=== PATIENT | male | born 1970 | race Caucasian/White ===

== ENCOUNTER 2016-12-21 15:26 | Observation (INO) | payer MEDICAID ==
[2016-12-21] MEDS ORDERED: Sodium Chloride 0.9% 1,000 ML IV ONE (15:49)
--- NOTE | 2016-12-21 15:49 | EDM.PDOC ---
ED HPI GENERAL MEDICAL PROBLEM - General Chief Complaint: Respiratory Problem Stated Complaint: SHORTNESS OF BREATH Time Seen by Provider: 12/21/16 15:46 Source of Information: Reports: Patient, Family - History of Present Illness INITIAL COMMENTS - FREE TEXT/NARRATIVE: HISTORY AND PHYSICAL: History of present illness: [] Patient presents by private vehicle Patient has a history pulmonary embolism subsequently receiving TPA leading to history of CVA earlier this year back in April, he was admitted for rehabilitation at [place] [facility] [place], he was released in July, he returned home. he generally walks 200 yards per day going down his driveway and back, today he was tired generally weak and was unable to walk the 200 yards, his is quite worried about this and is brought him in On December 11 he had some replacement hardware placed in his head, he also has a ventricular shunt. This was on December 11, since he has been released is followed by neurology [place] he has surgical scars on his head sutures are in place there clean dry intact. there are also [address] AURELIO drain had been this is been removed. this wound is also clean dry and intact. His neurologist is cleared him to start L Aquinas and is currently taking this as directed No fever nausea vomiting chills sweats no chest pain shortness of breath headache dizziness or palpitation no bowel or urine symptoms, his states he is short of breath patient denies this is breathing is nonlabored and he speaks without difficulty is in no distress whatsoever He did ambulate into the emergency room on his own Review of systems: As per history of present illness and below otherwise all systems reviewed and negative. Past medical history: As per history of present illness and as reviewed below otherwise noncontributory. Surgical history: As per history of present illness and as reviewed below otherwise noncontributory. Social history: No reported history of drug or alcohol abuse. Family history: As per history of present illness and as reviewed below otherwise noncontributory. Physical exam: HEENT: Atraumatic, normocephalic, pupils reactive, negative for conjunctival pallor or scleral icterus, mucous membranes moist, throat clear, neck supple, nontender, trachea midline. Lungs: Clear to auscultation, breath sounds equal bilaterally, chest nontender. Heart: S1S2, regular, negative for clicks, rubs, or JVD. Abdomen: Soft, nondistended, nontender. Negative for masses or hepatosplenomegaly. Negative for costovertebral tenderness. Pelvis: Stable nontender. Genitourinary: Deferred. Rectal: Deferred. Extremities: Atraumatic, negative for cords or calf pain. Neurovascular unremarkable. Neuro: Awake, alert, oriented. Cranial nerves II through XII unremarkable. Cerebellum unremarkable. Motor and sensory unremarkable throughout. Exam nonfocal. Diagnostics: []Lab as below EKG Chest 1 view Therapeutics: []Normal saline bolus DuoNeb Solu-Medrol Impression: Hypoxia 86 % RA []Generalized weakness Chronic history of baseline Definitive disposition and diagnosis as appropriate pending reevaluation and review of above. - Related Data Allergies Allergy/AdvReac Type Severity Reaction Status Date / Time No Known Allergies Allergy Verified 04/26/16 20:38 Home Meds: Home Meds Apixaban [Eliquis] 2.5 mg PO BID 12/21/16 [History] Baclofen 10 mg PO QID 12/21/16 [History] Escitalopram Oxalate 20 mg PO DAILY 12/21/16 [History] amLODIPine [Norvasc] 5 mg PO DAILY 12/21/16 [History] oxyCODONE 5 mg PO Q6HR PRN 12/21/16 [History] Past Medical History HEENT History: Reports: None Cardiovascular History: Reports: None Respiratory History: Reports: None Gastrointestinal History: Reports: None Neurological History: Reports: Other (See Below) Other Neuro History: brain bleed - Infectious Disease History Infectious Disease History: Reports: Chicken Pox - Past Surgical History HEENT Surgical History: Reports: None Cardiovascular Surgical History: Reports: None Respiratory Surgical History: Reports: None GI Surgical History: Reports: Hernia, Abdominal Social & Family History - Tobacco Use Smoking Status *Q: Never Smoker Years of Tobacco use: 10 Packs/Tins Daily: 0.2 Second Hand Smoke Exposure: No - Caffeine Use Caffeine Use: Reports: Coffee, Soda - Recreational Drug Use Recreational Drug Use: No - Living Situation & Occupation Living situation: Reports: with Significant Other Occupation: Employed ED ROS GENERAL - Review of Systems Review Of Systems: See Below ED EXAM, GENERAL - Physical Exam Exam: See Below Course - Vital Signs Last Recorded V/S: Last Vital Signs Temp 36.7 C 12/21/16 15:38 Pulse 70 12/21/16 15:38 Resp 18 12/21/16 15:38 BP 117/79 12/21/16 15:38 Pulse Ox 96 12/21/16 16:10 - Orders/Labs/Meds Orders: Active Orders 24 hr Category Date Time Status EKG Documentation Completion [RC] STAT Care 12/21/16 15:45 Active RT Aerosol Therapy [RC] ASDIRECTED Care 12/21/16 16:24 Active RT Aerosol Therapy [RC] ASDIRECTED Care 12/21/16 16:25 Inactive Chest 1V Frontal [CR] Stat Exams 12/21/16 15:45 Taken B-TYPE NATRIURETIC PEPTIDE,BNP [CHEM] Stat Lab 12/21/16 15:40 Received Labs: Laboratory Tests 12/21/16 12/21/16 12/21/16 Range/Units 15:40 15:40 15:40 WBC 6.23 (4.0-11.0) K/uL RBC 4.35 L (4.50-5.90) M/uL Hgb 13.9 (13.0-17.0) g/dL Hct 41.5 (38.0-50.0) % MCV 95.4 (80.0-98.0) fL MCH 32.0 (27.0-32.0) pg MCHC 33.5 (31.0-37.0) g/dL RDW Std Deviation 45.8 (28.0-62.0) fl RDW Coeff of El 13 (11.0-15.0) % Plt Count 203 (150-400) K/uL MPV 9.90 (7.40-12.00) fL Neut % (Auto) 62.7 (48.0-80.0) % Lymph % (Auto) 25.7 (16.0-40.0) % [place] % (Auto) 8.8 (0.0-15.0) % Eos % (Auto) 2.6 (0.0-7.0) % Baso % (Auto) 0.2 (0.0-1.5) % Neut # (Auto) 3.9 (1.4-5.7) K/uL Lymph # (Auto) 1.6 (0.6-2.4) K/uL [place] # (Auto) 0.6 (0.0-0.8) K/uL Eos # (Auto) 0.2 (0.0-0.7) K/uL Baso # (Auto) 0.0 (0.0-0.1) K/uL Nucleated RBC % 0.0 /100WBC Nucleated RBCs # 0 K/uL INR 1.00 (0.86-1.11) Sodium 142 (136-146) mmol/L Potassium 4.0 (3.5-5.1) mmol/L Chloride 107 (98-110) mmol/L Carbon Dioxide 24 (21-31) mmol/L BUN 12 (6.0-23.0) mg/dL Creatinine 0.9 (0.6-1.5) mg/dL Est Cr Clr Drug Dosing 104.77 mL/min Estimated GFR (MDRD) > 60.0 ml/min Glucose 85 (60-110) mg/dL Calcium 9.7 (8.8-10.8) mg/dL Total Bilirubin 0.7 (0.1-1.5) mg/dL AST 16 (5-40) IU/L ALT 16 (8-54) IU/L Alkaline Phosphatase 76 (40-150) Troponin I (0.0-0.29) NG/ML Total Protein 7.6 (6.0-8.0) g/dL Albumin 4.4 (3.5-5.0) g/dL Globulin 3.2 (2.0-3.5) g/dL Albumin/Globulin Ratio 1.4 (1.3-2.8) Urine Color Urine Appearance Urine pH (5.0-8.0) Ur Specific [place] (1.001-1.035) Urine Protein (NEGATIVE) mg/dL Urine Glucose (UA) (NEGATIVE) mg/dL Urine Ketones (NEGATIVE) mg/dL Urine Occult Blood (NEGATIVE) Urine Nitrite (NEGATIVE) Urine Bilirubin (NEGATIVE) Urine Urobilinogen (<2.0) EU/dL Ur Leukocyte Esterase (NEGATIVE) Urine RBC (0-2/HPF) Urine WBC (0-5/HPF) Ur Epithelial Cells (NONE-FEW) Urine Bacteria (NEGATIVE) 12/21/16 12/21/16 Range/Units 15:40 16:44 WBC (4.0-11.0) K/uL RBC (4.50-5.90) M/uL Hgb (13.0-17.0) g/dL Hct (38.0-50.0) % MCV (80.0-98.0) fL MCH (27.0-32.0) pg MCHC (31.0-37.0) g/dL RDW Std Deviation (28.0-62.0) fl RDW Coeff of El (11.0-15.0) % Plt Count (150-400) K/uL MPV (7.40-12.00) fL Neut % (Auto) (48.0-80.0) % Lymph % (Auto) (16.0-40.0) % [place] % (Auto) (0.0-15.0) % Eos % (Auto) (0.0-7.0) % Baso % (Auto) (0.0-1.5) % Neut # (Auto) (1.4-5.7) K/uL Lymph # (Auto) (0.6-2.4) K/uL [place] # (Auto) (0.0-0.8) K/uL Eos # (Auto) (0.0-0.7) K/uL Baso # (Auto) (0.0-0.1) K/uL Nucleated RBC % /100WBC Nucleated RBCs # K/uL INR (0.86-1.11) Sodium (136-146) mmol/L Potassium (3.5-5.1) mmol/L Chloride (98-110) mmol/L Carbon Dioxide (21-31) mmol/L BUN (6.0-23.0) mg/dL Creatinine (0.6-1.5) mg/dL Est Cr Clr Drug Dosing mL/min Estimated GFR (MDRD) ml/min Glucose (60-110) mg/dL Calcium (8.8-10.8) mg/dL Total Bilirubin (0.1-1.5) mg/dL AST (5-40) IU/L ALT (8-54) IU/L Alkaline Phosphatase (40-150) Troponin I < 0.10 (0.0-0.29) NG/ML Total Protein (6.0-8.0) g/dL Albumin (3.5-5.0) g/dL Globulin (2.0-3.5) g/dL Albumin/Globulin Ratio (1.3-2.8) Urine Color YELLOW Urine Appearance CLEAR Urine pH 6.5 (5.0-8.0) Ur Specific [place] 1.010 (1.001-1.035) Urine Protein NEGATIVE (NEGATIVE) mg/dL Urine Glucose (UA) NEGATIVE (NEGATIVE) mg/dL Urine Ketones NEGATIVE (NEGATIVE) mg/dL Urine Occult Blood TRACE-INTACT (NEGATIVE) Urine Nitrite NEGATIVE (NEGATIVE) Urine Bilirubin NEGATIVE (NEGATIVE) Urine Urobilinogen 0.2 (<2.0) EU/dL Ur Leukocyte Esterase NEGATIVE (NEGATIVE) Urine RBC 0-1 (0-2/HPF) Urine WBC 0-1 (0-5/HPF) Ur Epithelial Cells RARE (NONE-FEW) Urine Bacteria RARE (NEGATIVE) Meds: Medications Discontinued Medications Generic Name Dose Route Start Last Admin Trade Name Freq PRN Reason Stop Dose Admin Albuterol/Ipratropium 3 ml 12/21/16 16:24 12/21/16 16:31 Duoneb 3.0-0.5 Mg/3 Ml NEB 12/21/16 16:25 3 ml ONETIME ONE Administration Albuterol/Ipratropium 3 ml 12/21/16 16:25 Duoneb 3.0-0.5 Mg/3 Ml NEB 12/21/16 16:26 ONETIME ONE Sodium Chloride 1,000 mls @ 999 mls/hr 12/21/16 15:49 12/21/16 16:03 Normal Saline IV 12/21/16 16:49 999 mls/hr STAT ONE Administration Methylprednisolone Sodium Succinate 125 mg 12/21/16 16:24 12/21/16 16:31 Solu-Medrol IVPUSH 12/21/16 16:25 125 mg ONETIME ONE Administration Methylprednisolone Sodium Succinate 125 mg 12/21/16 16:24 12/21/16 16:33 Solu-Medrol IVPUSH 12/21/16 16:25 Not Given ONETIME ONE Departure - Departure Time of Disposition: 17:32 Disposition: Refer to Observation Condition: Fair Clinical Impression: Hypoxia, COPD (chronic obstructive pulmonary disease) - Discharge Information Referrals: PCP,None [Primary Care Provider] - Forms: ED Department Discharge - My Orders Last 24 Hours: My Active Orders 12/21/16 15:40 B-TYPE NATRIURETIC PEPTIDE,BNP [CHEM] Stat 12/21/16 15:45 EKG Documentation Completion [RC] STAT Chest 1V Frontal [CR] Stat 12/21/16 16:24 RT Aerosol Therapy [RC] ASDIRECTED 12/21/16 16:25 RT Aerosol Therapy [RC] ASDIRECTED - Assessment/Plan Last 24 Hours: My Active Orders 12/21/16 15:40 B-TYPE NATRIURETIC PEPTIDE,BNP [CHEM] Stat 12/21/16 15:45 EKG Documentation Completion [RC] STAT Chest 1V Frontal [CR] Stat 12/21/16 16:24 RT Aerosol Therapy [RC] ASDIRECTED 12/21/16 16:25 RT Aerosol Therapy [RC] ASDIRECTED
[2016-12-21 16:15] LABS: CHLORIDE,CL 107 mmol/L (98-110); SODIUM,NA 142 mmol/L (136-146)
[2016-12-21] MEDS ORDERED: methylPREDNISolone Sodium Succinate 125 MG/2 ML SDV IVPUSH ONE ×2 (16:24)
[2016-12-21] MEDS ORDERED: Albuterol/Ipratropium 3.0-0.5 MG/3 ML Neb Soln NEB ONE ×2 (16:24→16:25)
[2016-12-21] MEDS ORDERED: oxyCODONE 5 MG Tab PO PRN (19:34)
[2016-12-21] MEDS ORDERED: Albuterol 6.7 GM Inhaler INH PRN (19:34)
--- NOTE | 2016-12-21 19:52 | PCM.HP ---
<Baluch,Aime - Last Filed: 12/21/16 19:45> H&P History of Present Illness - General Date of Service: 12/21/16 Admit Problem/Dx: Admission Diagnosis/Problem Admission Diagnosis/Problem Hypoxia - History of Present Illness Initial Comments - Free Text/Narative: 46 yo male with history of hemorrhagic stroke admitted for dyspnea with exertion. Patient complains of sob that has occurred few times when he has tried to go for walk. He also complains of pain in both hamstrings. He is a previous smoker with 10 pack year history who quit this past feburary after having the stroke. According to patients family he has COPD which was diagnosed based on XR. He does not take any inhalers. He received solumedrol and duonebs in ED. He denies any sob, chest pain, fever, cough. - Related Data Allergies/Adverse Reactions: Allergies Allergy/AdvReac Type Severity Reaction Status Date / Time No Known Allergies Allergy Verified 04/26/16 20:38 Home Medications: Home Meds Apixaban [Eliquis] 2.5 mg PO BID 12/21/16 [History] Baclofen 10 mg PO QID 12/21/16 [History] Escitalopram Oxalate 20 mg PO DAILY 12/21/16 [History] amLODIPine [Norvasc] 5 mg PO DAILY 12/21/16 [History] oxyCODONE 5 mg PO Q6HR PRN 12/21/16 [History] Past Medical History HEENT History: Reports: Impaired Vision, Other (See Below) Other HEENT History: double vision in right eye Cardiovascular History: Reports: None Respiratory History: Reports: PE Other Respiratory History: chronic cough Gastrointestinal History: Reports: None Neurological History: Reports: Other (See Below) Other Neuro History: brain bleed - Infectious Disease History Infectious Disease History: Reports: Chicken Pox - Past Surgical History Head Surgeries/Procedures: Reports: Shunt HEENT Surgical History: Reports: None Cardiovascular Surgical History: Reports: None Respiratory Surgical History: Reports: None GI Surgical History: Reports: Hernia, Abdominal Other Musculoskeletal Surgeries/Procedures:: severe left sided weakness from a brain bleed in Apr Social & Family History - Family History Family Medical History: Noncontributory - Tobacco Use Smoking Status *Q: Former Smoker Years of Tobacco use: 10 Packs/Tins Daily: 1 Used Tobacco, but Quit: Yes Month Tobacco Last Used: Apr Second Hand Smoke Exposure: No - Caffeine Use Caffeine Use: Reports: Coffee, Soda - Recreational Drug Use Recreational Drug Use: No - Living Situation & Occupation Living situation: Reports: with Significant Other Occupation: Employed H&P Review of Systems - Review of Systems: Review Of Systems: See Below General: Reports: No Symptoms HEENT: Reports: No Symptoms Pulmonary: Reports: No Symptoms. Denies: Wheezing, Pleuritic Chest Pain, Cough , Sputum Cardiovascular: Reports: Dyspnea on Exertion. Denies: Chest Pain, Palpitations , Orthopnea, PND, Edema Gastrointestinal: Reports: No Symptoms Genitourinary: Reports: No Symptoms Musculoskeletal: Reports: Muscle Pain Skin: Reports: No Symptoms Psychiatric: Reports: No Symptoms Neurological: Reports: No Symptoms Hematologic/Lymphatic: Reports: No Symptoms Immunologic: Reports: No Symptoms Exam - Exam Exam: See Below - Vital Signs Vital Signs: Last Vital Signs Temp 37.1 C 12/21/16 18:12 Pulse 79 12/21/16 18:12 Resp 18 12/21/16 18:12 BP 141/90 H 12/21/16 18:12 Pulse Ox 94 L 12/21/16 18:12 Weight: 101.5 kg - Exam General: Alert, Oriented HEENT: Conjunctiva Clear, Mucosa Moist & [place], Nares Patent, Normal Nasal Septum , Posterior Pharynx Clear Neck: Supple, Trachea Midline Lungs: Clear to Auscultation, Normal Respiratory Effort Cardiovascular: Regular Rate, Regular Rhythm Extremities: Normal Inspection, No Pedal Edema Neuro Extensive - Mental Status: Alert, Oriented x3 - Patient Data Result Diagrams: 12/21/16 15:40 12/21/16 15:40 *Q Meaningful Use (ADM) - VTE *Q VTE Criteria *Q: - Stroke *Q Stroke Criteria *Q: - AMI *Q AMI Criteria *Q: Problem List Initiated/Reviewed/Updated: Yes Orders Last 24hrs: Active Orders 24 hr Category Date Time Status Patient Status [ADT] Routine ADT 12/21/16 19:34 Ordered Antiembolic Devices [RC] PER UNIT ROUTINE Care 12/21/16 19:38 Ordered Oxygen Therapy [RC] PRN Care 12/21/16 19:34 Ordered RT Aerosol Therapy [RC] ASDIRECTED Care 12/21/16 19:42 Ordered RT Post Treatment Assessment [RC] Click to Edit Care 12/21/16 19:42 Ordered RT Pre-Treatment Assessment [RC] Click to Edit Care 12/21/16 19:42 Ordered Up With Assistance [RC] ASDIRECTED Care 12/21/16 19:34 Ordered VTE/DVT Education [RC] PER UNIT ROUTINE Care 12/21/16 19:34 Ordered Vital Signs [RC] Q4H Care 12/21/16 19:34 Ordered PT Evaluation and Treatment [CONS] Routine Cons 12/21/16 19:34 Ordered Heart Healthy Diet [DIET] Diet 12/22/16 Breakfast Active Regular Diet [DIET] Diet 12/21/16 Breakfast Ordered BASIC METABOLIC PANEL,BMP [CHEM] AM Lab 12/22/16 05:11 Ordered CBC WITH AUTO DIFF [HEME] AM Lab 12/22/16 05:11 Ordered Albuterol [Proventil HFA] Med 12/21/16 19:34 Ordered 2 gm INH Q4H PRN Albuterol/Ipratropium [DuoNeb 3.0-0.5 MG/3 ML] Med 12/21/16 19:45 Ordered 3 ml NEB Q8HRRT Apixaban [Eliquis] Med 12/21/16 21:00 Ordered 2.5 mg PO BID Baclofen [Lioresal] Med 12/22/16 00:00 Ordered 10 mg PO QID Escitalopram Oxalate Med 12/22/16 09:00 Ordered 20 mg PO DAILY FLU Vacc [id number] 36mos UP/PF [Fluarix Quad [id number]] Med 12/22/16 11:00 Once 60 mcg IM .ONCE ONE amLODIPine [Norvasc] Med 12/22/16 09:00 Ordered 5 mg PO DAILY oxyCODONE Med 12/21/16 19:34 Ordered 5 mg PO Q6H PRN Sequential Compression Device [OM.PC] Per Unit Routine Oth 12/21/16 19:36 Ordered Resuscitation Status Routine Resus Stat 12/21/16 19:34 Ordered Medication Orders Albuterol (Proventil Hfa) 2 gm INH Q4H PRN PRN Reason: Shortness of Breath Albuterol/Ipratropium (Duoneb 3.0-0.5 Mg/3 Ml) 3 ml NEB Q8HRRT GLADYS Amlodipine Besylate (Norvasc) 5 mg PO DAILY GLADYS Apixaban (Eliquis) 2.5 mg PO BID GLADYS Baclofen (Lioresal) 10 mg PO QID GLADYS Influenza Virus Vaccine (Fluarix Quad [id number]) 60 mcg IM .ONCE ONE Stop: 12/22/16 11:01 Non-Formulary Medication (Escitalopram Oxalate) 20 mg PO DAILY GLADYS Oxycodone HCl (Oxycodone) 5 mg PO Q6H PRN PRN Reason: Pain (moderate 4-6) Assessment/Plan Comment:: assessment: 46 year old male with history of hemorrhagic stroke in 04/2016 on Eliquis admitted for ROSALES. CXR and labs in ED negative. ROSALES: duo nebs q8hr prn. albuterol q4hr prn. BL Thigh Pain: CPK. Pt consult. <González Merchant - Last Filed: 12/21/16 20:51> H&P History of Present Illness - General Admit Problem/Dx: Admission Diagnosis/Problem Admission Diagnosis/Problem Hypoxia Exam - Vital Signs Vital Signs: Last Vital Signs Temp 37.2 C 12/21/16 20:00 Pulse 82 12/21/16 20:00 Resp 18 12/21/16 20:00 BP 114/72 12/21/16 20:00 Pulse Ox 93 L 12/21/16 20:00 - Patient Data Result Diagrams: 12/21/16 15:40 12/21/16 15:40 *Q Meaningful Use (ADM) - VTE *Q VTE Criteria *Q: - Stroke *Q Stroke Criteria *Q: - AMI *Q AMI Criteria *Q: Orders Last 24hrs: Active Orders 24 hr Category Date Time Status Patient Status [ADT] Routine ADT 12/21/16 19:34 Active Antiembolic Devices [RC] PER UNIT ROUTINE Care 12/21/16 19:38 Active Oxygen Therapy [RC] PRN Care 12/21/16 19:34 Active RT Aerosol Therapy [RC] ASDIRECTED Care 12/21/16 19:42 Active RT Post Treatment Assessment [RC] Click to Edit Care 12/21/16 19:42 Active RT Pre-Treatment Assessment [RC] Click to Edit Care 12/21/16 19:42 Active Up With Assistance [RC] ASDIRECTED Care 12/21/16 19:34 Active VTE/DVT Education [RC] PER UNIT ROUTINE Care 12/21/16 19:34 Active Vital Signs [RC] Q4H Care 12/21/16 19:34 Active PT Evaluation and Treatment [CONS] Routine Cons 12/21/16 19:34 Active Heart Healthy Diet [DIET] Diet 12/22/16 Breakfast Active Regular Diet [DIET] Diet 12/21/16 Breakfast Active BASIC METABOLIC PANEL,BMP [CHEM] AM Lab 12/22/16 05:11 Ordered CBC WITH AUTO DIFF [HEME] AM Lab 12/22/16 05:11 Ordered Albuterol [Proventil HFA] Med 12/21/16 19:34 Active 0 gm INH Q4H PRN Albuterol/Ipratropium [DuoNeb 3.0-0.5 MG/3 ML] Med 12/21/16 19:45 Active 3 ml NEB Q8HRRT Apixaban [Eliquis] Med 12/21/16 21:00 Active 2.5 mg PO BID Baclofen [Lioresal] Med 12/22/16 00:00 Active 10 mg PO QID FLU Vacc [id number] 36mos UP/PF [Fluarix Quad [id number]] Med 12/22/16 11:00 Once 60 mcg IM .ONCE ONE Non-Formulary Medication [NF Drug] Med 12/22/16 09:00 Active 1 each PO DAILY amLODIPine [Norvasc] Med 12/22/16 09:00 Active 5 mg PO DAILY oxyCODONE Med 12/21/16 19:34 Active 5 mg PO Q6H PRN Sequential Compression Device [OM.PC] Per Unit Routine Oth 12/21/16 19:36 Ordered Resuscitation Status Routine Resus Stat 12/21/16 19:34 Ordered Medication Orders Albuterol (Proventil Hfa) 0 gm INH Q4H PRN PRN Reason: Shortness of Breath Albuterol/Ipratropium (Duoneb 3.0-0.5 Mg/3 Ml) 3 ml NEB Q8HRRT GLADYS Last Admin: 12/21/16 20:01 Dose: 3 ml Amlodipine Besylate (Norvasc) 5 mg PO DAILY GLADYS Apixaban (Eliquis) 2.5 mg PO BID GLADYS Baclofen (Lioresal) 10 mg PO QID GLADYS Influenza Virus Vaccine (Fluarix Quad ) 60 mcg IM .ONCE ONE Stop: 12/22/16 11:01 Escitalopram 20mg (Pt Own) 1 each PO DAILY GLADYS Oxycodone HCl (Oxycodone) 5 mg PO Q6H PRN PRN Reason: Pain (moderate 4-6) - Free Text/Narrative Note: I have discussed the patient's history Dr. Pruitt, with the ER physician and his mother, an RN employed here. I have examined this patient and have reviewed his data. I concur with Dr. Pruitt's assessment and plan.
[2016-12-21] MEDS: Albuterol/Ipratropium 3.0-0.5 MG/3 ML Neb Soln NEB SCH ×2 (20:01→21:47)
[2016-12-21] MEDS ORDERED: APIXABAN 2.5 MG PO SCH (21:00)
[2016-12-22] MEDS: BACLOFEN 10 MG PO SCH ×4 (00:36→19:21)
[2016-12-22] MEDS: Sodium Chloride 0.9% 1,000 ML IV SCH ×2 (00:39→08:03)
[2016-12-22] MEDS: Ondansetron 4 MG/2 ML SDV IVPUSH PRN ×2 (02:54→06:37)
[2016-12-22] MEDS: Calcium Carbonate 500 MG Tab.Chew PO PRN ×2 (05:11→08:01)
--- NOTE | 2016-12-22 05:29 | PCM.DCSUM1 ---
Discharge Summary - Hospital Course Free Text/Narrative:: 46 yo male with history of Hemorrhagic Stroke and COPD admitted on 12/21/16 for SOB, ROSALES and BL Thigh pain secondary to Rhabdomyolysis. In the ED he was treated with Duonebs and Solumedrol which led to improvement of ROSALES. He was sent to floor for observation. On the floor he was found to have elevated CK which was treated with IV NS. According to patient and his mother, he was diagnosed with COPD by a physician in [place]. He has not been prescribed inhalers or nebulizers in the past. Both were used during his hospitalization which led to improvement of his breathing. He was discharged home on 12/22/16. He was given prescriptions for Albuterol INH, Advair & Albuterol Nebulizer. F/U arranged with his PCP Dr. Horn. PFT recommended as out-patient. Admission Diagnosis: 1. ROSALES 2. SOB 3. PMH COPD 4. BL Thigh Pain Discharge Diagnosis: 1. ROSALES, secondary to COPD Exacerbation, improved 2. SOB, secondary to COPD Exacerbation, improved 3. PMH COPD 4. BL Thing Pain, secondary to Rhabdomyolysis, improved - Discharge Data Discharge Date: 12/22/16 Discharge Disposition: Home, Self-Care 01 Condition: Good - Patient Summary/Data Consults: Consultations 12/21/16 19:34 PT Evaluation and Treatment [CONS] Routine - Patient Instructions Diet: Usual Diet as Tolerated Activity: As Tolerated Showering/Bathing: May Shower Notify Provider of: Fever, Increased Pain, Swelling and Redness, Drainage, Nausea and/or Vomiting - Discharge Plan Prescriptions/Med Rec: Albuterol [Proventil HFA] 2 gm INH Q4H PRN #1 inhaler PRN Reason: Shortness Of Breath Albuterol/Ipratropium [DuoNeb 3.0-0.5 MG/3 ML] 3 ml NEB QID PRN #360 ml PRN Reason: Shortness Of Breath Fluticasone/Salmeterol [Advair 250-50 Diskus] 1 each IH BID #1 disk.w.dev Ondansetron HCl [Zofran] 4 mg PO Q4H #20 tablet Home Medications: Home Meds Apixaban [Eliquis] 2.5 mg PO BID 12/21/16 [History] Baclofen 10 mg PO QID 12/21/16 [History] Escitalopram Oxalate 20 mg PO DAILY 12/21/16 [History] amLODIPine [Norvasc] 5 mg PO DAILY 12/21/16 [History] oxyCODONE 5 mg PO Q6HR PRN 12/21/16 [History] Albuterol [Proventil HFA] 2 gm INH Q4H PRN #1 inhaler 12/22/16 [Rx] Albuterol/Ipratropium [DuoNeb 3.0-0.5 MG/3 ML] 3 ml NEB QID PRN #360 ml [Rx] Fluticasone/Salmeterol [Advair 250-50 Diskus] 1 each IH BID #1 disk.w.dev [Rx] Ondansetron HCl [Zofran] 4 mg PO Q4H #20 tablet 12/22/16 [Rx] Patient Handouts: Albuterol inhalation powder, Albuterol; Ipratropium respiratory inhalation spray (Combivent Respimat), Fluticasone; Salmeterol inhalation powder, Chronic Obstructive Pulmonary Disease, [id number] Referrals: Sindy Horn MD [Physician] - 12/29/16 1:00 pm - Patient Data Vitals - Most Recent: Last Vital Signs Temp 37.0 C 12/22/16 04:00 Pulse 85 12/22/16 04:00 Resp 16 12/22/16 04:00 BP 106/69 12/22/16 04:00 Pulse Ox 94 L 12/22/16 04:00 Weight - Most Recent: 101.5 kg Med Orders - Current: Current Medications Albuterol (Proventil Hfa) 0 gm INH Q4H PRN PRN Reason: Shortness of Breath Albuterol/Ipratropium (Duoneb 3.0-0.5 Mg/3 Ml) 3 ml NEB Q8HRRT [facility] Last Admin: 12/21/16 21:47 Dose: Not Given Amlodipine Besylate (Norvasc) 5 mg PO DAILY [facility] Apixaban (Eliquis) 2.5 mg PO BID [facility] Last Admin: 12/21/16 20:56 Dose: 2.5 mg Baclofen (Lioresal) 10 mg PO QID [facility] Last Admin: 12/22/16 00:36 Dose: 10 mg Calcium Carbonate/Glycine (Tums) 500 mg PO Q2H PRN PRN Reason: Indigestion Last Admin: 12/22/16 05:11 Dose: 500 mg Sodium Chloride (Normal Saline) 1,000 mls @ 125 mls/hr IV ASDIRECTED GLADYS Last Admin: 12/22/16 00:39 Dose: 125 mls/hr Influenza Virus Vaccine (Fluarix Quad [id number]) 60 mcg IM .ONCE ONE Stop: 12/22/16 11:01 Escitalopram 20mg (Pt Own) 1 each PO DAILY [facility] Ondansetron HCl (Zofran) 4 mg IVPUSH Q4H PRN PRN Reason: Nausea/Vomiting Last Admin: 12/22/16 02:54 Dose: 4 mg Oxycodone HCl (Oxycodone) 5 mg PO Q6H PRN PRN Reason: Pain (moderate 4-6) Discontinued Medications Albuterol/Ipratropium (Duoneb 3.0-0.5 Mg/3 Ml) 3 ml NEB ONETIME ONE Stop: 12/21/16 16:25 Last Admin: 12/21/16 16:31 Dose: 3 ml Albuterol/Ipratropium (Duoneb 3.0-0.5 Mg/3 Ml) 3 ml NEB ONETIME ONE Stop: 12/21/16 16:26 Sodium Chloride (Normal Saline) 1,000 mls @ 999 mls/hr IV STAT ONE Stop: 12/21/16 16:49 Last Admin: 12/21/16 16:03 Dose: 999 mls/hr Influenza Virus Vaccine (Pharmacy To Dose - Influenza Vaccine) 1 each IM ONETIME ONE Stop: 12/21/16 19:31 Methylprednisolone Sodium Succinate (Solu-Medrol) 125 mg IVPUSH ONETIME ONE Stop: 12/21/16 16:25 Last Admin: 12/21/16 16:31 Dose: 125 mg Methylprednisolone Sodium Succinate (Solu-Medrol) 125 mg IVPUSH ONETIME ONE Stop: 12/21/16 16:25 Last Admin: 12/21/16 16:33 Dose: Not Given *Q Meaningful Use (DIS) - VTE *Q VTE Criteria *Q: - Stroke *Q Stroke Criteria *Q: - AMI *Q AMI Criteria *Q:
[2016-12-22 06:07] LABS: CHLORIDE,CL 110 mmol/L (98-110); SODIUM,NA 141 mmol/L (136-146)
[2016-12-22] MEDS: Albuterol/Ipratropium 3.0-0.5 MG/3 ML Neb Soln NEB SCH ×2 (06:41→14:24)
[2016-12-22] MEDS ORDERED: Fluticasone/Salmeterol 250-50 MCG Inhalation Powder 14/Diskus INH SCH (09:00)
[2016-12-22] MEDS ORDERED: AMLODIPINE 5 MG PO SCH ×2 (09:00)
[2016-12-22] MEDS ORDERED: APIXABAN 2.5 MG PO SCH (09:00)
[2016-12-22] MEDS ORDERED: ESCITALOPRAM 20 MG PO SCH ×2 (09:00)
[2016-12-22] MEDS ORDERED: FLU Vacc QS 2017-18 (36mos UP)/PF 60 MCG/0.5 ML Syringe IM ONE (11:00)
--- NOTE | 2016-12-22 13:40 | CR ---
EXAM DATE: 12/21/16 PATIENT'S AGE: 46 Patient: CHANDRA KNOWLES Facility: [place], [place] Site . Site : [id number] Study: XRay Chest [id number]/15/2017 4:04:55 PM Ordering Physician: Catherine Garcia Final Report: INDICATION: Weakness COMPARISON: None. FINDINGS: A portable AP supine view of the chest was obtained. The cardiac silhouette and pulmonary vasculature are within normal limits. The lungs are clear bilaterally. IMPRESSION: No evidence of acute pulmonary disease. Dictated by Darius Alvarado MD @ 12/21/2016 4:18:05 PM Dictated by: Darius Alvarado MD @ 12/21/2016 16:18:16 (Electronic Signature) Report Signed by Proxy. [facility]ESEE HOSPITALJacquelyn
[2016-12-22 17:03] VITALS: BP 126/86
== END 2016-12-22 17:45 | disposition home or self-care (01) ==
LOC: MW.ED 15:26 → MW.MS 17:36
PROVIDERS: ADMIT Family Medicine; ATTEND Family Medicine
DX: J44.1 Chronic obstructive pulmonary disease with (acute) exacerbation (principal); M62.82 Rhabdomyolysis; Z86.73 Personal history of transient ischemic attack (TIA), and cerebral infarction without residual deficits; Z87.891 Personal history of nicotine dependence; Z86.711 Personal history of pulmonary embolism; Z79.01 Long term (current) use of anticoagulants; Z79.899 Other long term (current) drug therapy; Z98.890 Other specified postprocedural states
CPT/HCPCS: 36415; 71010; 80048; 80053; 81001; 82550; 83880; 84484; 85025; 85610; 93005; 94640; 96361; 96374; 96375; 96376; 97161; 99285; A9270; G0008; G0378; J2405; J2930; J7040; 90686; 99283

== ENCOUNTER 2020-12-07 14:42 | Emergency (ER) | payer MEDICARE, OTHER ==
[2020-12-07] MEDS ORDERED: Morphine 4 MG/ML Syringe IVPUSH ONE (15:41)
[2020-12-07] MEDS ORDERED: Ondansetron 4 MG/2 ML SDV IVPUSH ONE ×2 (15:41→18:21)
[2020-12-07] MEDS ORDERED: Sodium Chloride 0.9% 1,000 ML IV ONE (15:42)
--- NOTE | 2020-12-07 16:00 | EDM.PDOC ---
ED HPI GENERAL MEDICAL PROBLEM - General Chief Complaint: Abdominal Pain Stated Complaint: UPSET STOMACH, VOMITING Time Seen by Provider: 12/07/20 15:37 Source of Information: Reports: Patient History Limitations: Reports: No Limitations - History of Present Illness INITIAL COMMENTS - FREE TEXT/NARRATIVE: HISTORY AND PHYSICAL: History of present illness: Patient is a 50-year-old male who presents to the emergency room with complaints of generalized abdominal pain, nausea and vomiting since this morning. Patient states he is unable to pinpoint where his abdomen hurts describes it as a cramping sensation "all over". He has had nausea since waking up this morning has had approximately 5 episodes of emesis. Patient denies any fever, chills, headache, change in vision, syncope or near syncope. Denies any chest pain, back pain, shortness of breath or cough. Denies any diarrhea, constipation or dysuria. Last bowel movement yesterday, normal. Has not noted any blood in urine or stool. Denies any testicular pain, redness or swelling. Patient has been eating and drinking appropriately. No recent travel or sick contacts. Review of systems: As per history of present illness and below otherwise all systems reviewed and negative. Past medical history: As per history of present illness and as reviewed below otherwise noncontributory. Surgical history: As per history of present illness and as reviewed below otherwise noncontributory. Social history: See social history for further information Family history: As per history of present illness and as reviewed below otherwise noncontributory. Physical exam: General: Well developed and well nourished. Alert and orientated x 3. Nontoxic in appearance and in no acute distress. Vital signs are stable and have been reviewed by me. Nursing notes were reviewed. HEENT: Atraumatic, normocephalic, pupils equal and reactive bilaterally, negative for conjunctival pallor or scleral icterus, mucous membranes moist, neck supple, nontender, trachea midline. No drooling or trismus noted. No meningeal signs. No hot potato voice noted. Lungs: Clear to auscultation bilaterally. No wheezes, rales, or rhonchi. Chest nontender. Normal work of breathing, no accessory muscles used. Heart: S1S2, regular rate and rhythm without overt murmur, gallops, or rubs. No JVD. No peripheral edema Abdomen: Soft, nondistended, generalized tenderness in all 4 quadrants. Normoactive bowel sounds. Negative for masses or costovertebral tenderness. Skin: Intact, warm, dry. No lesions or rashes noted. Hematologic: No petechiae or purpra. Mucosa appropriate color and normal nail bed color and refill. Extremities: Atraumatic, moves all extremities per self without difficulty or deficits, negative for cords or calf pain. Neurovascular unremarkable. Neuro: Awake, alert, oriented. Cranial nerves II through XII unremarkable. Cerebellum unremarkable. Motor and sensory unremarkable throughout. Exam nonfocal. Psychiatric: Mood and affect are appropriate. Normal thought process. Answering questions appropriately. Please note that the patient was seen and evaluated during the 2019 SARS-CoV-2 novel coronavirus pandemic period. Community viral transmission is ongoing at time of this encounter and the emergency department is operating under pandemic response procedures. Medical Decision Making: Patient is a 50-year-old male who presents to the emergency room with complaints of generalized abdominal pain, nausea and vomiting x1 day. He is tender in all 4 quadrants. States he has had 5 episodes of emesis. No household sick contacts. CT shows [id number] diverticulitis of the sigmoid colon. No evidence of perforation or abscess. Nonacute additional findings as detailed above. Patient is tolerating PO. We discussed outpatient care. I have talked with the patient about today's findings, in addition to providing specific details for plan of care. Reassessment at the time of disposition demonstrates that the patient is in no acute distress. The patient is stable for discharge, counseling was provided and we discussed in great detail signs and symptoms that would prompt them to return to the Emergency Department. Medication, follow up and supportive care measures were reviewed and discussed. Voices understanding and is agreeable to plan of care. Denies any further questions or concerns at this time. Diagnostics: CBC, CMP, lipase, UA, CT abdomen and pelvis Therapeutics: IV fluid, morphine, Zofran Prescription: Augmentin, [place], Zofran Impression: Diverticulitis Plan: 1. You were evaluated today on an emergent basis. Your labs are normal. Your CT shows evidence of diverticulitis. For the next few days try to increase your fluids (bowel rest) and low fiber food. Then resume as tolerated. 2. You can alternate Tylenol and ibuprofen as needed for pain and fever management. 3. We encourage you to follow up with your primary care provider and/or recommended specialist in the next few days for re-evaluation and further care/management. 4. If your symptoms should worsen, new symptoms develop or any of the signs and symptoms we discussed should arise please return to the emergency room or call 911 (if needed). Definitive disposition and diagnosis as appropriate pending reevaluation and review of above. abdomen Pain Score (Numeric/FACES): 1 - Related Data Allergies Allergy/AdvReac Type Severity Reaction Status Date / Time No Known Allergies Allergy Verified 12/07/20 15:37 Home Meds: Home Meds Apixaban [Eliquis] 2.5 mg PO BID 12/21/16 [History] Baclofen 10 mg PO QID 12/21/16 [History] Escitalopram Oxalate 20 mg PO DAILY 12/21/16 [History] Amoxicillin/Clavulanate K [Augmentin 875-125 MG] 1 tab PO BID 10 Days #20 tablet 12/07/20 [Rx] Hydrocodone/Acetaminophen [HYDROcodone-Acetaminophen 5-325 MG] 1 - 2 tab PO Q4HR PRN #20 tablet 12/07/20 [Rx] Ondansetron [Zofran ODT] 4 mg PO Q6H PRN #8 tab.dis 12/07/20 [Rx] hydroCHLOROthiazide [Hydrochlorothiazide] 25 mg PO DAILY 12/07/20 [History] Past Medical History HEENT History: Reports: Impaired Vision, Other (See Below) Other HEENT History: double vision in right eye Cardiovascular History: Reports: None Respiratory History: Reports: PE Other Respiratory History: chronic cough Gastrointestinal History: Reports: None Genitourinary History: Reports: None Musculoskeletal History: Reports: None Neurological History: Reports: Other (See Below) Other Neuro History: brain bleed Psychiatric History: Reports: None Endocrine/Metabolic History: Reports: Obesity/BMI 30+ Hematologic History: Reports: None Immunologic History: Reports: None Oncologic (Cancer) History: Reports: None Dermatologic History: Reports: None - Infectious Disease History Infectious Disease History: Reports: Chicken Pox - Past Surgical History Head Surgeries/Procedures: Reports: Shunt HEENT Surgical History: Reports: None Cardiovascular Surgical History: Reports: None Respiratory Surgical History: Reports: None GI Surgical History: Reports: Hernia, Abdominal, Other (See Below) Other GI Surgeries/Procedures: pt states abdominal stent placed Other Musculoskeletal Surgeries/Procedures:: 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 ED EXAM, GI/ABD - Physical Exam Exam: See Below (See dictation) Course - Vital Signs Last Recorded V/S: Last Vital Signs Temp 98 F 12/07/20 15:39 Pulse 556 H 12/07/20 17:54 Resp 20 12/07/20 17:54 BP 146/79 H 12/07/20 17:54 Pulse Ox 92 L 12/07/20 17:54 - Orders/Labs/Meds Orders: Active Orders 24 hr Category Date Time Status Sodium Chloride 0.9% [Normal Saline] 1,000 ml Med 12/07/20 15:42 Active IV STAT Medication Orders Sodium Chloride (Normal Saline) 1,000 mls @ 125 mls/hr IV STAT ONE Stop: 12/07/20 23:41 Last Admin: 12/07/20 15:55 Dose: 125 mls/hr Documented by: YARI Labs: Laboratory Tests 12/07/20 12/07/20 12/07/20 Range/Units 15:55 15:55 17:00 WBC 9.18 (4.0-11.0) K/uL RBC 4.95 (4.50-5.90) M/uL Hgb 15.8 (13.0-17.0) g/dL Hct 46.8 (38.0-50.0) % MCV 94.5 (80.0-98.0) fL MCH 31.9 (27.0-32.0) pg MCHC 33.8 (31.0-37.0) g/dL RDW Std Deviation 43.8 (28.0-62.0) fl RDW Coeff of El 13 (11.0-15.0) % Plt Count 198 (150-400) K/uL MPV 10.90 (7.40-12.00) fL Neut % (Auto) 85.4 H (48.0-80.0) % Lymph % (Auto) 9.2 L (16.0-40.0) % [place] % (Auto) 5.3 (0.0-15.0) % Eos % (Auto) 0.0 (0.0-7.0) % Baso % (Auto) 0.1 (0.0-1.5) % Neut # (Auto) 7.8 H (1.4-5.7) K/uL Lymph # (Auto) 0.8 (0.6-2.4) K/uL [place] # (Auto) 0.5 (0.0-0.8) K/uL Eos # (Auto) 0.0 (0.0-0.7) K/uL Baso # (Auto) 0.0 (0.0-0.1) K/uL Nucleated RBC % 0.0 /100WBC Nucleated RBCs # 0 K/uL Sodium 141 (136-148) mmol/L Potassium 3.5 (3.5-5.1) mmol/L Chloride 100 (98-107) mmol/L Carbon Dioxide 30.0 (21.0-32.0) mmol/L BUN 16 (7.0-18.0) mg/dL Creatinine 1.1 (0.8-1.3) mg/dL Est Cr Clr Drug Dosing 82.03 mL/min Estimated GFR (MDRD) > 60.0 ml/min Glucose 129 H (74-106) mg/dL Calcium 9.1 (8.5-10.1) mg/dL Total Bilirubin 0.8 (0.2-1.0) mg/dL AST 19 (15-37) IU/L ALT 29 (14-63) IU/L Alkaline Phosphatase 73 (46-116) U/L Total Protein 8.5 H (6.4-8.2) g/dL Albumin 4.1 (3.4-5.0) g/dL Globulin 4.4 H (2.6-4.0) g/dL Albumin/Globulin Ratio 0.9 (0.9-1.6) Lipase 60 L (73-393) U/L Urine Color YELLOW Urine Appearance HAZY Urine pH 6.5 (5.0-8.0) Ur Specific [place] <= 1.005 (1.001-1.035) Urine Protein NEGATIVE (NEGATIVE) mg/dL Urine Glucose (UA) NEGATIVE (NEGATIVE) mg/dL Urine Ketones TRACE H (NEGATIVE) mg/dL Urine Occult Blood MODERATE H (NEGATIVE) Urine Nitrite NEGATIVE (NEGATIVE) Urine Bilirubin NEGATIVE (NEGATIVE) Urine Urobilinogen 0.2 (<2.0) EU/dL Ur Leukocyte Esterase NEGATIVE (NEGATIVE) Urine RBC 5-10 (0-2/HPF) Urine WBC 0-1 (0-5/HPF) Ur Epithelial Cells RARE (NONE-FEW) Urine Bacteria FEW (NEGATIVE) Meds: Medications Generic Name Dose Route Start Last Admin Trade Name Freq PRN Reason Stop Dose Admin Sodium Chloride 1,000 mls @ 125 mls/hr 12/07/20 15:42 12/07/20 15:55 Normal Saline IV 12/07/20 23:41 125 mls/hr STAT ONE Administration Discontinued Medications Generic Name Dose Route Start Last Admin Trade Name Freq PRN Reason Stop Dose Admin Iopamidol 100 ml 12/07/20 16:57 12/07/20 16:58 Iopamidol 755 Mg/Ml 500 Ml Multipack Bottle IVPUSH 12/07/20 16:58 100 ml ONETIME ONE Administration Morphine Sulfate 4 mg 12/07/20 15:41 12/07/20 15:55 Morphine 4 Mg/Ml Syringe IVPUSH 12/07/20 15:42 4 mg ONETIME ONE Administration Morphine Sulfate 2 mg 12/07/20 18:21 Morphine 2 Mg/Ml Syringe IVPUSH 12/07/20 18:22 ONETIME ONE Ondansetron HCl 4 mg 12/07/20 15:41 12/07/20 15:55 Ondansetron 4 Mg/2 Ml Sdv IVPUSH 12/07/20 15:42 4 mg ONETIME ONE Administration Ondansetron HCl 4 mg 12/07/20 18:21 Ondansetron 4 Mg/2 Ml Sdv IVPUSH 12/07/20 18:22 ONETIME ONE Departure - Departure Time of Disposition: 18:27 Disposition: Home, Self-Care 01 Clinical Impression: Diverticulitis of sigmoid colon - Discharge Information Prescriptions: Amoxicillin/Clavulanate K [Augmentin 875-125 MG] 1 tab PO BID 10 Days #20 tablet Hydrocodone/Acetaminophen [HYDROcodone-Acetaminophen 5-325 MG] 1 - 2 tab PO Q4HR PRN #20 tablet PRN Reason: Pain (Moderate 4-6) Ondansetron [Zofran ODT] 4 mg PO Q6H PRN #8 tab.dis PRN Reason: Nausea Instructions: Diverticulitis, [id number] Referrals: Rosenda Alvarado MAT CUTTER [Primary Care Provider] - Forms: ED Department Discharge Additional Instructions: The following information is given to patients seen in the emergency department who are being discharged to home. This information is to outline your options for follow-up care. We provide all patients seen in our emergency department with a follow-up referral. The need for follow-up, as well as the timing and circumstances, are variable depending upon the specifics of your emergency department visit. If you don't have a primary care physician on staff, we will provide you with a referral. We always advise you to contact your personal physician following an emergency department visit to inform them of the circumstance of the visit and for follow-up with them and/or the need for any referrals to a consulting specialist. The emergency department will also refer you to a specialist when appropriate. This referral assures that you have the opportunity for follow-up care with a specialist. All of these measure are taken in an effort to provide you with optimal care, which includes your follow-up. Under all circumstances we always encourage you to contact your private physician who remains a resource for coordinating your care. When calling for follow-up care, please make the office aware that this follow-up is from your recent emergency room visit. If for any reason you are refused follow-up, please contact the [facility] Emergency Department at and asked to speak to the emergency department charge nurse. [facility] [address] [place] [id number] [address] Thank you for choosing the [facility] emergency department in [place] for your medical needs today. It was a pleasure caring for you. Today you were seen in the emergency department for abdominal pain. 1. You were evaluated today on an emergent basis. Your labs are normal. Your CT shows evidence of diverticulitis. For the next few days try to increase your fluids (bowel rest) and low fiber food. Then resume as tolerated. 2. You can alternate Tylenol and ibuprofen as needed for pain and fever management. 3. We encourage you to follow up with your primary care provider and/or recommended specialist in the next few days for re-evaluation and further care/management. 4. If your symptoms should worsen, new symptoms develop or any of the signs and symptoms we discussed should arise please return to the emergency room or call 911 (if needed). Sepsis Event Note (ED) - Evaluation Sepsis Screening Result: No Definite Risk - Focused Exam Vital Signs: Vital Signs Temp Pulse Resp BP Pulse Ox 12/07/20 17:54 556 H 20 146/79 H 92 L 12/07/20 15:39 98 F 50 L 20 146/83 H 96 - My Orders Last 24 Hours: My Active Orders 12/07/20 15:42 Sodium Chloride 0.9% [Normal Saline] 1,000 ml IV STAT - Assessment/Plan Last 24 Hours: My Active Orders 12/07/20 15:42 Sodium Chloride 0.9% [Normal Saline] 1,000 ml IV STAT
[2020-12-07 16:24] LABS: BLOOD UREA NITROGEN,BUN 16 mg/dL (7.0-18.0); CHLORIDE,CL 100 mmol/L (98-107); GLUCOSE RANDOM 129 mg/dL (74-106); LIPASE 60 U/L (73-393); POTASSIUM,K 3.5 mmol/L (3.5-5.1); SODIUM,NA 141 mmol/L (136-148)
[2020-12-07] MEDS ORDERED: Iopamidol 755 MG/ML 500 ML Multipack Bottle IVPUSH ONE (16:57)
--- NOTE | 2020-12-07 18:14 | CT ---
INDICATION: ABDOMINAL PAIN, N/V CT ABDOMEN AND PELVIS WITH CONTRAST TECHNIQUE: Multidetector CT imaging was performed through the abdomen and pelvis following intravenous contrast administration using 100 mL Isovue 370. Coronal and sagittal reconstructions were generated. COMPARISON: None. FINDINGS: Lower chest: Minimal bibasilar lung atelectasis. Liver: Within normal limits. Gallbladder and bile ducts: Multiple calcified gallstones within the gallbladder. No CT evidence of cholecystitis. No biliary dilation identified. Pancreas: Unremarkable. Spleen: Normal. Adrenals: No nodules or masses. Kidneys, ureters, and urinary bladder: No renal masses or hydronephrosis. No bladder mass or definite wall thickening. No gas within the bladder lumen to suggest colovesical fistula. Gastrointestinal tract: Normal caliber small bowel without wall thickening or obstruction. The appendix is normal. Multiple diverticula of the descending colon and sigmoid. Wall thickening of the mid sigmoid colon with adjacent fat stranding, consistent with diverticulitis. Abdominal wall: Small fat-containing bilateral inguinal hernias. Vascular structures: Normal caliber abdominal aorta. Minimal atherosclerotic calcifications. IVC filter. Focal narrowing of the IVC just inferior to the filter may reflect chronic occlusion. Enlarged venous collaterals are noted in the subcutaneous tissues of the left abdominal wall. Peritoneum: No free air, abscess, or significant free fluid. The distal portion of a ventriculoperitoneal shunt catheter extends into the left lower quadrant. Lymph nodes: No pathologically enlarged nodes identified. Reproductive organs: No pelvic masses. Bones: Age-indeterminate mild compression fracture T12 and moderate compression fracture of L2, both favored to be nonacute. IMPRESSION: 1. [id number] diverticulitis of the sigmoid colon. No evidence of perforation or abscess. 2. Nonacute additional findings as detailed above. JONO YOU MD [employer] Dictated by Nam You MD @ 12/07/2020 6:11:53 PM Please note that all CT scans at this facility use dose modulation, iterative reconstruction, and/or weight-based dosing when appropriate to reduce radiation dose to as low as reasonably achievable. Dictated by: Nam You MD @ 12/07/2020 18:12:22 (Electronically Signed)
[2020-12-07] MEDS ORDERED: Morphine 2 MG/ML SYRINGE IVPUSH ONE (18:21)
[2020-12-07 18:58] VITALS: BP 144/79; PULSE 62
== END 2020-12-07 18:46 | disposition home or self-care (01) ==
LOC: MW.ED 14:42
DX: K57.32 Diverticulitis of large intestine without perforation or abscess without bleeding (principal); E66.9 Obesity, unspecified; Z68.38 Body mass index [BMI] 38.0-38.9, adult; Z86.711 Personal history of pulmonary embolism; Z79.01 Long term (current) use of anticoagulants; Z79.899 Other long term (current) drug therapy
CPT/HCPCS: 36415; 74177; 80053; 81001; 83690; 85025; 96374; 96375; 96376; 99284; J2270; J2405; J7030; Q9967

== ENCOUNTER 2022-06-01 18:00 | Inpatient (IN) | payer MEDICARE, OTHER ==
[2022-06-01] MEDS ORDERED: Sodium Chloride 0.9% 2.5 ML Syringe FLUSH PRN (18:36)
[2022-06-01] MEDS ORDERED: Sodium Chloride 0.9% 10 ML Syringe FLUSH PRN (18:36)
[2022-06-01] MEDS ORDERED: Sodium Chloride 0.9% 1,000 ML IV STA (18:36)
[2022-06-01 19:21] LABS: CARBON DIOXIDE,CO2 32.7 mmol/L (21.0-32.0); POTASSIUM,K 3.8 mmol/L (3.5-5.1)
[2022-06-01] MEDS ORDERED: Iopamidol 755 MG/ML 500 ML Multipack Bottle IVPUSH ONE (19:30)
[2022-06-01] MEDS ORDERED: Morphine 4 MG/ML Syringe IVPUSH STA (20:27)
[2022-06-01] MEDS ORDERED: Piperacillin/Tazobactam 3.375 GM in Sodium Chloride 0.9% 50 ML IV STA (22:08)
[2022-06-01] MEDS ORDERED: Sodium Chloride 0.9% 50 ML ONE (22:13)
[2022-06-01 23:34] LABS: CORONAVIRUS COVID-19 NAA NEGATIVE (NEGATIVE); INFLUENZA A NAA NEGATIVE (NEGATIVE); INFLUENZA B NAA NEGATIVE (NEGATIVE)
[2022-06-01] MEDS ORDERED: Ondansetron 4 MG/2 ML SDV IVPUSH PRN (23:55)
[2022-06-02] MEDS: Baclofen 10 MG Tab PO SCH ×3 (00:43→20:09)
[2022-06-02] MEDS: Morphine 2 MG/ML SYRINGE IVPUSH PRN ×5 (00:43→22:07)
[2022-06-02] MEDS: Apixaban 2.5 MG Tab PO SCH ×3 (00:43→20:09)
[2022-06-02] MEDS ORDERED: Piperacillin/Tazobactam 3.375 GM in Sodium Chloride 0.9% 50 ML IV SCH (04:00)
[2022-06-02] MEDS ORDERED: Sodium Chloride 0.9% 50 ML ONE (04:13)
[2022-06-02] MEDS: Sodium Chloride 0.9% 1,000 ML IV SCH ×3 (04:53→22:08)
[2022-06-02 06:44] LABS: CARBON DIOXIDE,CO2 26.3 mmol/L (21.0-32.0); POTASSIUM,K 3.5 mmol/L (3.5-5.1)
[2022-06-02] MEDS: Escitalopram 10 MG Tab PO SCH (08:50)
[2022-06-02] MEDS: Lisinopril 10 MG Tab PO SCH (08:57)
[2022-06-02] MEDS: Hydrochlorothiazide 25 MG Tab PO SCH (08:57)
[2022-06-02] MEDS: Piperacillin/Tazobactam 3.375 GM in Sodium Chloride 0.9% 50 ML IV SCH ×3 (10:10→22:08)
[2022-06-02] MEDS: oxyCODONE 5 MG Tab PO PRN (20:09)
[2022-06-03] MEDS: Piperacillin/Tazobactam 3.375 GM in Sodium Chloride 0.9% 50 ML IV SCH ×4 (04:27→21:40)
[2022-06-03] MEDS: Morphine 2 MG/ML SYRINGE IVPUSH PRN ×3 (04:27→16:45)
[2022-06-03 06:28] LABS: CARBON DIOXIDE,CO2 27.1 mmol/L (21.0-32.0); POTASSIUM,K 3.6 mmol/L (3.5-5.1)
[2022-06-03] MEDS: Sodium Chloride 0.9% 1,000 ML IV SCH ×2 (06:48→15:15)
[2022-06-03] MEDS: Levothyroxine 88 MCG Tab PO SCH (06:48)
[2022-06-03] MEDS: Apixaban 2.5 MG Tab PO SCH ×2 (09:11→21:40)
[2022-06-03] MEDS: Hydrochlorothiazide 25 MG Tab PO SCH (09:11)
[2022-06-03] MEDS: Escitalopram 10 MG Tab PO SCH (09:11)
[2022-06-03] MEDS: Baclofen 10 MG Tab PO SCH ×2 (09:12→21:40)
[2022-06-03] MEDS: Lisinopril 10 MG Tab PO SCH (09:14)
[2022-06-03] MEDS: oxyCODONE 5 MG Tab PO PRN ×2 (15:29→22:10)
[2022-06-04] MEDS: Sodium Chloride 0.9% 1,000 ML IV SCH ×3 (00:56→19:47)
[2022-06-04] MEDS: oxyCODONE 5 MG Tab PO PRN ×2 (04:56→17:02)
[2022-06-04] MEDS: Levothyroxine 88 MCG Tab PO SCH ×2 (04:57→06:45)
[2022-06-04 05:45] LABS: CARBON DIOXIDE,CO2 27.1 mmol/L (21.0-32.0); POTASSIUM,K 3.7 mmol/L (3.5-5.1)
[2022-06-04] MEDS: Piperacillin/Tazobactam 3.375 GM in Sodium Chloride 0.9% 50 ML IV SCH ×4 (09:20→21:55)
[2022-06-04] MEDS: Morphine 2 MG/ML SYRINGE IVPUSH PRN ×2 (09:30→19:11)
[2022-06-04] MEDS: Baclofen 10 MG Tab PO SCH ×2 (09:35→21:55)
[2022-06-04] MEDS: Lisinopril 10 MG Tab PO SCH (09:35)
[2022-06-04] MEDS: Escitalopram 10 MG Tab PO SCH (09:36)
[2022-06-04] MEDS: Apixaban 2.5 MG Tab PO SCH ×2 (09:36→21:55)
[2022-06-04] MEDS: Hydrochlorothiazide 25 MG Tab PO SCH (09:36)
[2022-06-05] MEDS: Morphine 2 MG/ML SYRINGE IVPUSH PRN ×2 (03:02→09:12)
[2022-06-05] MEDS: Piperacillin/Tazobactam 3.375 GM in Sodium Chloride 0.9% 50 ML IV SCH ×3 (03:03→17:50)
[2022-06-05] MEDS: Sodium Chloride 0.9% 1,000 ML IV SCH ×2 (04:11→13:38)
[2022-06-05] MEDS: Levothyroxine 88 MCG Tab PO SCH (06:34)
[2022-06-05 07:23] LABS: CARBON DIOXIDE,CO2 28.6 mmol/L (21.0-32.0); POTASSIUM,K 3.6 mmol/L (3.5-5.1)
[2022-06-05] MEDS: Lisinopril 10 MG Tab PO SCH (09:09)
[2022-06-05] MEDS: Apixaban 2.5 MG Tab PO SCH (09:10)
[2022-06-05] MEDS: Baclofen 10 MG Tab PO SCH (09:10)
[2022-06-05] MEDS: Hydrochlorothiazide 25 MG Tab PO SCH (09:11)
[2022-06-05] MEDS: Escitalopram 10 MG Tab PO SCH (09:11)
[2022-06-05] MEDS ORDERED: Iopamidol 755 MG/ML 500 ML Multipack Bottle IVPUSH STA (12:13)
[2022-06-05] MEDS ORDERED: Morphine 2 MG/ML SYRINGE IVPUSH PRN (14:59)
[2022-06-05 15:53] VITALS: BP 119/73; PULSE 80
== END 2022-06-05 19:00 | DRG 392 ==
LOC: MW.ED 18:00 → MW.MS 22:28
PROVIDERS: ADMIT Internal Medicine; ATTEND Internal Medicine
DX: K57.20 Diverticulitis of large intestine with perforation and abscess without bleeding (principal); J44.9 Chronic obstructive pulmonary disease, unspecified; I10 Essential (primary) hypertension; E66.9 Obesity, unspecified; K80.20 Calculus of gallbladder without cholecystitis without obstruction; R31.29 Other microscopic hematuria; E03.9 Hypothyroidism, unspecified; Z20.822 Contact with and (suspected) exposure to COVID-19; Z86.711 Personal history of pulmonary embolism; Z98.890 Other specified postprocedural states; Z86.73 Personal history of transient ischemic attack (TIA), and cerebral infarction without residual deficits; Z98.2 Presence of cerebrospinal fluid drainage device; Z79.899 Other long term (current) drug therapy; Z68.36 Body mass index [BMI] 36.0-36.9, adult; Z79.01 Long term (current) use of anticoagulants
CPT/HCPCS: 0240U; 36415; 74177; 80048; 80053; 83735; 84100; 85025; 81001; 83690; 96361; 96365; 96375; 99284; 99285-25; A9270-GY; J2270; J2543; J3490; J7030; J7050; Q9967

== ENCOUNTER 2022-07-06 22:28 | Emergency (ER) | payer MEDICARE, OTHER ==
[2022-07-07] MEDS ORDERED: Piperacillin/Tazobactam 4.5 GM in Sodium Chloride 0.9% 100 ML IV ONE ×2 (01:17→15:59)
[2022-07-07] MEDS ORDERED: HYDROmorphone 1 MG/ML Syringe IVPUSH ONE (01:17)
[2022-07-07] MEDS ORDERED: Sodium Chloride 0.9% 10 ML Syringe FLUSH PRN ×2 (01:17→04:24)
[2022-07-07] MEDS ORDERED: Sodium Chloride 0.9% 2.5 ML Syringe FLUSH PRN ×2 (01:17→04:24)
[2022-07-07] MEDS ORDERED: VANCOmycin 2 GM/400 ML 2 GM in Premix Bag 1 BAG IV ONE (01:30)
[2022-07-07] MEDS ORDERED: Iopamidol 755 MG/ML 500 ML Multipack Bottle IVPUSH ONE (01:57)
[2022-07-07 02:41] LABS: CARBON DIOXIDE,CO2 26.2 mmol/L (21.0-32.0); POTASSIUM,K 3.7 mmol/L (3.5-5.1)
[2022-07-07 18:47] VITALS: BP 110/62; PULSE 85
[2022-07-07] MEDS ORDERED: VANCOmycin 2 GM/400 ML 400 ML IV ONE (20:00)
[2022-07-07] MEDS ORDERED: Ondansetron 4 MG/2 ML SDV ONE (21:09)
[2022-07-07] MEDS ORDERED: Morphine 4 MG/ML Syringe ONE (21:09)
[2022-07-07] MEDS ORDERED: Morphine 4 MG/ML Syringe IVPUSH STA (21:20)
[2022-07-07] MEDS ORDERED: Ondansetron 4 MG/2 ML SDV IVPUSH STA (21:20)
== END 2022-07-07 21:43 ==
LOC: MW.ED 22:28
DX: A41.9 Sepsis, unspecified organism (principal); K57.20 Diverticulitis of large intestine with perforation and abscess without bleeding; L03.311 Cellulitis of abdominal wall; K63.2 Fistula of intestine; I10 Essential (primary) hypertension; J44.9 Chronic obstructive pulmonary disease, unspecified; E66.9 Obesity, unspecified; Z79.899 Other long term (current) drug therapy; Z79.01 Long term (current) use of anticoagulants; Z68.35 Body mass index [BMI] 35.0-35.9, adult
CPT/HCPCS: 36415; 71045; 74177; 80053; 80202; 81001; 83605; 83735; 84100; 84484; 85025; 85610; 85730; 86140; 87040; 96361; 96365; 96366; 96367; 96368; 96375; 99285; J2270; J2405; J2543; J3370; J3490; J7030; Q9967

== ENCOUNTER 2022-09-10 09:06 | Emergency (ER) | payer MEDICARE, OTHER ==
[2022-09-10 09:54] LABS: BASOPHILS PERCENT AUTO 0.2 % (0.0-1.5); EOSINOPHILS ABSOLUTE AUTO 0.1 K/uL (0.0-0.7); EOSINOPHILS PERCENT AUTO 1.6 % (0.0-7.0); HEMATOCRIT 45.7 % (38.0-50.0); HEMOGLOBIN 14.7 g/dL (13.0-17.0); LYMPHOCYTES ABSOLUTE AUTO 0.9 K/uL (0.6-2.4); LYMPHOCYTES PERCENT AUTO 14.1 % (16.0-40.0); MEAN CORPUSCULAR HEMOGLOBIN 31.1 pg (27.0-32.0); MEAN CORPUSCULAR HGB CONC 32.2 g/dL (31.0-37.0); MEAN CORPUSCULAR VOLUME 96.8 fL (80.0-98.0); MONOCYTES ABSOLUTE AUTO 0.5 K/uL (0.0-0.8); MONOCYTES PERCENT AUTO 7.3 % (0.0-15.0); NEUTROPHILS ABSOLUTE AUTO 4.7 K/uL (1.4-5.7); NEUTROPHILS PERCENT AUTO 76.8 % (48.0-80.0); NRBC ABSOLUTE 0 K/uL; PLATELET COUNT,PLT 148 K/uL (150-400); RED BLOOD CELL COUNT 4.72 M/uL (4.50-5.90); WHITE BLOOD CELL COUNT,WBC 6.15 K/uL (4.0-11.0)
[2022-09-10 10:01] LABS: INR 1.02 (0.86-1.11); PTT,PARTIAL THROMBOPLSTIN TIME 29.5 SEC (23.9-30.7)
[2022-09-10 10:18] LABS: ALBUMIN 4.1 g/dL (3.4-5.0); BILIRUBIN TOTAL 0.5 mg/dL (0.2-1.0); CALCIUM 9.2 mg/dL (8.5-10.1); CARBON DIOXIDE,CO2 21.9 mmol/L (21.0-32.0); EST CRCL DRUG DOSING (CG) 82.65 mL/min; POTASSIUM,K 3.8 mmol/L (3.5-5.1); PROTEIN TOTAL,TP 8.4 g/dL (6.4-8.2)
[2022-09-10] MEDS ORDERED: Clindamycin Phosphate in D5W 600 MG in Premix Bag 1 BAG IV ONE ×2 (10:40)
[2022-09-10 11:47] VITALS: BP 134/89; PULSE 82
== END 2022-09-10 11:47 | disposition home or self-care (01) ==
LOC: MW.ED 09:06
DX: L03.115 Cellulitis of right lower limb (principal); I10 Essential (primary) hypertension; J44.9 Chronic obstructive pulmonary disease, unspecified; E66.9 Obesity, unspecified; Z68.35 Body mass index [BMI] 35.0-35.9, adult; Z79.01 Long term (current) use of anticoagulants
CPT/HCPCS: 36415; 80053; 85025; 85610; 85730; 93971; 96365; 99285; J3490

== ENCOUNTER 2022-09-12 15:23 | Inpatient (IN) | payer MEDICARE, OTHER ==
[2022-09-12 15:49] LABS: BASOPHILS PERCENT AUTO 0.3 % (0.0-1.5); EOSINOPHILS ABSOLUTE AUTO 0.2 K/uL (0.0-0.7); EOSINOPHILS PERCENT AUTO 2.1 % (0.0-7.0); HEMATOCRIT 40.8 % (38.0-50.0); HEMOGLOBIN 13.3 g/dL (13.0-17.0); LYMPHOCYTES ABSOLUTE AUTO 1.1 K/uL (0.6-2.4); LYMPHOCYTES PERCENT AUTO 14.7 % (16.0-40.0); MEAN CORPUSCULAR HEMOGLOBIN 31.9 pg (27.0-32.0); MEAN CORPUSCULAR HGB CONC 32.6 g/dL (31.0-37.0); MEAN CORPUSCULAR VOLUME 97.8 fL (80.0-98.0); MONOCYTES ABSOLUTE AUTO 0.8 K/uL (0.0-0.8); MONOCYTES PERCENT AUTO 10.3 % (0.0-15.0); NEUTROPHILS ABSOLUTE AUTO 5.6 K/uL (1.4-5.7); NEUTROPHILS PERCENT AUTO 72.6 % (48.0-80.0); PLATELET COUNT,PLT 135 K/uL (150-400); RED BLOOD CELL COUNT 4.17 M/uL (4.50-5.90); WHITE BLOOD CELL COUNT,WBC 7.75 K/uL (4.0-11.0)
[2022-09-12 15:58] LABS: INR 1.02 (0.86-1.11)
[2022-09-12 16:11] LABS: A/G RATIO 0.9 (0.9-1.6); ALBUMIN 3.6 g/dL (3.4-5.0); BILIRUBIN TOTAL 0.5 mg/dL (0.2-1.0); CALCIUM 9.2 mg/dL (8.5-10.1); CARBON DIOXIDE,CO2 25.8 mmol/L (21.0-32.0); CREATININE 0.9 mg/dL (0.8-1.3); EST CRCL DRUG DOSING (CG) 94.92 mL/min; POTASSIUM,K 3.7 mmol/L (3.5-5.1); PROTEIN TOTAL,TP 7.6 g/dL (6.4-8.2)
[2022-09-12] MEDS ORDERED: Heparin Sodium 5,000 Units/ML Vial IVPUSH ONE (16:13)
[2022-09-12] MEDS: Heparin Sodium/0.45% NaCl 500 ML IV SCH (16:36)
[2022-09-12] MEDS ORDERED: Sodium Chloride 0.9% 10 ML Syringe FLUSH PRN (16:54)
[2022-09-12] MEDS ORDERED: Polyethylene Glycol 3350 Powder 17 GM Packet PO PRN (16:54)
[2022-09-12] MEDS ORDERED: Albuterol/Ipratropium 3.0-0.5 MG/3 ML Neb Soln NEB PRN (16:54)
[2022-09-12] MEDS ORDERED: Ondansetron 4 MG/2 ML SDV IVPUSH PRN (16:54)
[2022-09-12] MEDS ORDERED: Sodium Chloride 0.9% 20 ML SDV IV PRN (16:54)
[2022-09-12] MEDS ORDERED: Acetaminophen 325 MG Tab PO PRN (16:54)
[2022-09-12] MEDS ORDERED: Sodium Chloride 0.9% 2.5 ML Syringe FLUSH PRN (16:54)
[2022-09-13 05:32] LABS: BASOPHILS PERCENT AUTO 0.5 % (0.0-1.5); EOSINOPHILS ABSOLUTE AUTO 0.3 K/uL (0.0-0.7); EOSINOPHILS PERCENT AUTO 5.2 % (0.0-7.0); HEMATOCRIT 39.4 % (38.0-50.0); HEMOGLOBIN 12.7 g/dL (13.0-17.0); LYMPHOCYTES ABSOLUTE AUTO 1.7 K/uL (0.6-2.4); LYMPHOCYTES PERCENT AUTO 27.1 % (16.0-40.0); MEAN CORPUSCULAR HEMOGLOBIN 31.7 pg (27.0-32.0); MEAN CORPUSCULAR HGB CONC 32.2 g/dL (31.0-37.0); MEAN CORPUSCULAR VOLUME 98.3 fL (80.0-98.0); MONOCYTES ABSOLUTE AUTO 0.8 K/uL (0.0-0.8); NEUTROPHILS ABSOLUTE AUTO 3.5 K/uL (1.4-5.7); NEUTROPHILS PERCENT AUTO 55.2 % (48.0-80.0); PLATELET COUNT,PLT 139 K/uL (150-400); RED BLOOD CELL COUNT 4.01 M/uL (4.50-5.90); WHITE BLOOD CELL COUNT,WBC 6.32 K/uL (4.0-11.0)
[2022-09-13 05:47] LABS: INR 1.01 (0.86-1.11)
[2022-09-13] MEDS ORDERED: Heparin Sodium 5,000 Units/ML Vial IVPUSH ONE (05:53)
[2022-09-13] MEDS: Levothyroxine 88 MCG Tab PO SCH ×2 (06:07→06:30)
[2022-09-13] MEDS: Heparin Sodium/0.45% NaCl 500 ML IV SCH ×2 (06:08→19:53)
[2022-09-13] MEDS: Escitalopram 10 MG Tab PO SCH (09:30)
[2022-09-13] MEDS ORDERED: Bismuth Subsalicylate 262 MG/15 ML Susp 236 ML Bottle PO ONE (23:52)
[2022-09-14 06:01] LABS: BASOPHILS PERCENT AUTO 0.5 % (0.0-1.5); EOSINOPHILS ABSOLUTE AUTO 0.3 K/uL (0.0-0.7); EOSINOPHILS PERCENT AUTO 5.4 % (0.0-7.0); HEMATOCRIT 37.7 % (38.0-50.0); HEMOGLOBIN 12.2 g/dL (13.0-17.0); LYMPHOCYTES ABSOLUTE AUTO 1.9 K/uL (0.6-2.4); LYMPHOCYTES PERCENT AUTO 30.8 % (16.0-40.0); MEAN CORPUSCULAR HEMOGLOBIN 31.9 pg (27.0-32.0); MEAN CORPUSCULAR HGB CONC 32.4 g/dL (31.0-37.0); MEAN CORPUSCULAR VOLUME 98.7 fL (80.0-98.0); MONOCYTES ABSOLUTE AUTO 0.8 K/uL (0.0-0.8); MONOCYTES PERCENT AUTO 12.5 % (0.0-15.0); NEUTROPHILS ABSOLUTE AUTO 3.1 K/uL (1.4-5.7); NEUTROPHILS PERCENT AUTO 50.8 % (48.0-80.0); PLATELET COUNT,PLT 151 K/uL (150-400); RED BLOOD CELL COUNT 3.82 M/uL (4.50-5.90); WHITE BLOOD CELL COUNT,WBC 6.14 K/uL (4.0-11.0)
[2022-09-14 06:14] LABS: CALCIUM 8.6 mg/dL (8.5-10.1); CARBON DIOXIDE,CO2 23.3 mmol/L (21.0-32.0); CREATININE 0.9 mg/dL (0.8-1.3); EST CRCL DRUG DOSING (CG) 94.92 mL/min; POTASSIUM,K 3.9 mmol/L (3.5-5.1)
[2022-09-14] MEDS: Levothyroxine 88 MCG Tab PO SCH ×2 (06:21→06:31)
[2022-09-14] MEDS: Escitalopram 10 MG Tab PO SCH (09:22)
[2022-09-14] MEDS: Heparin Sodium/0.45% NaCl 500 ML IV SCH (10:35)
[2022-09-14] MEDS ORDERED: Melatonin 3 MG Tab PO PRN (22:22)
[2022-09-15] MEDS: Heparin Sodium/0.45% NaCl 500 ML IV SCH (01:19)
[2022-09-15 05:56] LABS: HEMATOCRIT 37.3 % (38.0-50.0); MEAN CORPUSCULAR HEMOGLOBIN 31.7 pg (27.0-32.0); MEAN CORPUSCULAR HGB CONC 32.2 g/dL (31.0-37.0); MEAN CORPUSCULAR VOLUME 98.4 fL (80.0-98.0); PLATELET COUNT,PLT 168 K/uL (150-400); RED BLOOD CELL COUNT 3.79 M/uL (4.50-5.90); WHITE BLOOD CELL COUNT,WBC 5.91 K/uL (4.0-11.0)
[2022-09-15 06:14] LABS: CALCIUM 8.6 mg/dL (8.5-10.1); CARBON DIOXIDE,CO2 26.9 mmol/L (21.0-32.0); CREATININE 0.9 mg/dL (0.8-1.3); EST CRCL DRUG DOSING (CG) 94.92 mL/min; POTASSIUM,K 3.9 mmol/L (3.5-5.1)
[2022-09-15] MEDS: Levothyroxine 88 MCG Tab PO SCH ×2 (06:26→06:38)
[2022-09-15] MEDS: Escitalopram 10 MG Tab PO SCH (09:20)
[2022-09-15] MEDS ORDERED: Rivaroxaban 15 MG Tab PO SCH (10:31)
[2022-09-15 12:34] VITALS: BP 183/74; PULSE 66
== END 2022-09-15 12:32 | disposition home or self-care (01) | DRG 300 ==
LOC: MW.ED 15:23 → MW.MS 16:16
PROVIDERS: ADMIT Family Medicine; ATTEND Family Medicine
PROC: 3E033GC Introduction of Other Therapeutic Substance into Peripheral Vein, Percutaneous Approach (ICD-10-PCS; principal; 2022-09-12)
DX: I82.411 Acute embolism and thrombosis of right femoral vein (principal); I69.354 Hemiplegia and hemiparesis following cerebral infarction affecting left non-dominant side; K57.92 Diverticulitis of intestine, part unspecified, without perforation or abscess without bleeding; I82.441 Acute embolism and thrombosis of right tibial vein; J44.9 Chronic obstructive pulmonary disease, unspecified; Z66 Do not resuscitate; I82.A11 Acute embolism and thrombosis of right axillary vein; E66.9 Obesity, unspecified; I10 Essential (primary) hypertension; Z93.3 Colostomy status; Z87.19 Personal history of other diseases of the digestive system; Z86.711 Personal history of pulmonary embolism; Z86.718 Personal history of other venous thrombosis and embolism; Z95.828 Presence of other vascular implants and grafts; Z79.01 Long term (current) use of anticoagulants; Z79.899 Other long term (current) drug therapy; Z68.34 Body mass index [BMI] 34.0-34.9, adult; Z98.890 Other specified postprocedural states; Z91.148 Patient's other noncompliance with medication regimen for other reason
CPT/HCPCS: 36415; 80048; 80053; 85025; 85027; 85610; 85730; 99284; 99285; A9270-GY; J1644